=== PATIENT | male | born 1950 | race Caucasian/White ===

== ENCOUNTER 2022-09-06 11:34 | Day surgery (SDC) | payer MEDICARE, OTHER ==
[~2022-09-06 11:34] MED LIST: Lactated Ringers 1,000 ML IV SCH; Midazolam 1 MG/ML 2 ML SDV ONE; Propofol 200 MG/20 ML SDV ONE; Sodium Chloride 0.9% 10 ML Syringe FLUSH PRN
[2022-09-06 16:40] VITALS: BP 136/88; PULSE 88
== END 2022-09-06 14:40 | disposition home or self-care (01) ==
LOC: LL.SDS 11:34
PROVIDERS: ATTEND Surgery
DX: D12.5 Benign neoplasm of sigmoid colon (principal); K57.30 Diverticulosis of large intestine without perforation or abscess without bleeding; F41.8 Other specified anxiety disorders; I13.0 Hypertensive heart and chronic kidney disease with heart failure and stage 1 through stage 4 chronic kidney disease, or unspecified chronic kidney disease; N18.4 Chronic kidney disease, stage 4 (severe); I50.9 Heart failure, unspecified; I48.19 Other persistent atrial fibrillation; D50.0 Iron deficiency anemia secondary to blood loss (chronic); E03.9 Hypothyroidism, unspecified; E78.5 Hyperlipidemia, unspecified; I48.21 Permanent atrial fibrillation; G47.33 Obstructive sleep apnea (adult) (pediatric); Z90.49 Acquired absence of other specified parts of digestive tract; Z98.0 Intestinal bypass and anastomosis status; Z79.890 Hormone replacement therapy; Z79.899 Other long term (current) drug therapy; Z87.891 Personal history of nicotine dependence; Z79.01 Long term (current) use of anticoagulants
CPT/HCPCS: 00812; J2250; J2704; J7120

== ENCOUNTER 2022-10-25 21:25 | Emergency (ER) | payer MEDICARE, OTHER ==
[2022-10-25] MEDS ORDERED: Meclizine 25 MG Tab PO ONE (21:27)
[2022-10-25 21:41] VITALS: BP 151/98; PULSE 73
== END 2022-10-25 21:50 | disposition home or self-care (01) ==
LOC: LL.ED 21:25
DX: R42 Dizziness and giddiness (principal); I48.91 Unspecified atrial fibrillation; E78.00 Pure hypercholesterolemia, unspecified; I25.2 Old myocardial infarction; K21.9 Gastro-esophageal reflux disease without esophagitis; Z86.73 Personal history of transient ischemic attack (TIA), and cerebral infarction without residual deficits; Z79.01 Long term (current) use of anticoagulants; Z79.899 Other long term (current) drug therapy
CPT/HCPCS: 99284; A9270-GY

== ENCOUNTER 2023-01-24 09:20 | Day surgery (SDC) | payer MEDICARE, OTHER ==
[~2023-01-24 09:20] MED LIST changes: -Lactated Ringers 1,000 ML IV SCH; -Sodium Chloride 0.9% 10 ML Syringe FLUSH PRN
[2023-01-24] MEDS ORDERED: Sodium Chloride 0.9% 10 ML Syringe FLUSH PRN (09:30)
[2023-01-24] MEDS ORDERED: Lactated Ringers 1,000 ML IV SCH (09:30)
[2023-01-24] MEDS ORDERED: Propofol 200 MG/20 ML SDV IVPUSH ONE (11:10)
[2023-01-24 11:58] VITALS: BP 129/91; PULSE 80
== END 2023-01-24 12:38 | disposition home or self-care (01) ==
LOC: LL.SDS 09:20
PROVIDERS: ATTEND Surgery
DX: Z12.11 Encounter for screening for malignant neoplasm of colon (principal); K57.30 Diverticulosis of large intestine without perforation or abscess without bleeding; E87.6 Hypokalemia; I13.0 Hypertensive heart and chronic kidney disease with heart failure and stage 1 through stage 4 chronic kidney disease, or unspecified chronic kidney disease; N18.4 Chronic kidney disease, stage 4 (severe); I50.33 Acute on chronic diastolic (congestive) heart failure; F41.8 Other specified anxiety disorders; E78.5 Hyperlipidemia, unspecified; I48.21 Permanent atrial fibrillation; D68.59 Other primary thrombophilia; I77.819 Aortic ectasia, unspecified site; K21.9 Gastro-esophageal reflux disease without esophagitis; E03.9 Hypothyroidism, unspecified; Z86.010 Personal history of colon polyps; Z87.891 Personal history of nicotine dependence; Z98.0 Intestinal bypass and anastomosis status; Z86.73 Personal history of transient ischemic attack (TIA), and cerebral infarction without residual deficits; Z79.01 Long term (current) use of anticoagulants
CPT/HCPCS: 00812; J2250; J2704; J7120

== ENCOUNTER 2023-11-04 18:03 | Observation (INO) | payer MEDICARE, OTHER ==
[2023-11-04 18:23] LABS: BASOPHILS ABSOLUTE AUTO 0.05 K/uL (0.00-0.20); BASOPHILS PERCENT AUTO 0.5 % (0.0-2.0); EOSINOPHILS ABSOLUTE AUTO 0.19 K/uL (0.00-0.50); EOSINOPHILS PERCENT AUTO 2.1 % (0.0-5.0); HEMATOCRIT 48.9 % (39.0-49.0); HEMOGLOBIN 15.7 g/dL (13.1-16.8); LYMPHOCYTES ABSOLUTE AUTO 1.49 K/uL (0.50-3.50); LYMPHOCYTES PERCENT AUTO 16.2 % (10.0-50.0); MEAN CORPUSCULAR HGB CONC 32.1 g/dL (31.7-36.0); MEAN CORPUSCULAR VOLUME 93.5 fL (84.0-98.0); MONOCYTES ABSOLUTE AUTO 0.91 K/uL (0.00-1.00); MONOCYTES PERCENT AUTO 9.9 % (2.0-14.0); NEUTROPHILS ABSOLUTE AUTO 6.58 K/uL (1.40-7.00); NEUTROPHILS PERCENT AUTO 71.3 % (45.0-80.0); PLATELET COUNT,PLT 304 K/uL (150-350); RED BLOOD CELL COUNT 5.23 M/uL (4.33-5.41); RED CELL DISTRIBUTION WIDTH 14.1 % (11.2-14.1); WHITE BLOOD CELL COUNT,WBC 9.2 K/uL (4.0-10.2)
[2023-11-04 18:43] LABS: ALANINE AMINOTRANSFERASE,ALT 17 U/L (12-78); ALBUMIN 2.8 g/dL (3.4-5.0); ALKALINE PHOSPHATASE 150 IU/L (46-116); ASPARTATE AMNIOTRANSFERASE,AST 14 U/L (15-37); BILIRUBIN TOTAL 0.8 mg/dL (0.2-1.0); BLOOD UREA NITROGEN,BUN 30 mg/dL (7-18); CALCIUM 8.3 mg/dL (8.5-10.1); CARBON DIOXIDE,CO2 28.2 mmol/L (21.0-32.0); CHLORIDE,CL 108 mmol/L (98-107); CREATININE 2.75 mg/dL (0.51-1.17); GLUCOSE RANDOM 87 mg/dL (70-99); POTASSIUM,K 4.4 mmol/L (3.5-5.1); SODIUM,NA 141 mmol/L (136-145)
[2023-11-04 18:44] LABS: ANION GAP 9.2 meq/L (7-15); ESTIMATED GFR 23 mL/min (>=60)
[2023-11-04 18:50] LABS: INR 2.9 (0.9-1.1); PROTHROMBIN TIME 27.5 SEC (9.0-11.1)
[2023-11-04 19:34] LABS: PTT,PARTIAL THROMBOPLSTIN TIME 38.1 SEC (23.6-29.8)
[2023-11-05 06:24] VITALS: BP 128/83; PULSE 81
[2023-11-05 07:28] LABS: BASOPHILS ABSOLUTE AUTO 0.05 K/uL (0.00-0.20); BASOPHILS PERCENT AUTO 0.6 % (0.0-2.0); EOSINOPHILS ABSOLUTE AUTO 0.23 K/uL (0.00-0.50); EOSINOPHILS PERCENT AUTO 2.7 % (0.0-5.0); HEMOGLOBIN 14.4 g/dL (13.1-16.8); LYMPHOCYTES ABSOLUTE AUTO 1.42 K/uL (0.50-3.50); LYMPHOCYTES PERCENT AUTO 16.4 % (10.0-50.0); MEAN CORPUSCULAR HEMOGLOBIN 29.9 pg (28.2-33.3); MEAN CORPUSCULAR VOLUME 93.6 fL (84.0-98.0); MONOCYTES ABSOLUTE AUTO 0.99 K/uL (0.00-1.00); MONOCYTES PERCENT AUTO 11.5 % (2.0-14.0); NEUTROPHILS ABSOLUTE AUTO 5.95 K/uL (1.40-7.00); NEUTROPHILS PERCENT AUTO 68.8 % (45.0-80.0); PLATELET COUNT,PLT 283 K/uL (150-350); RED BLOOD CELL COUNT 4.81 M/uL (4.33-5.41); WHITE BLOOD CELL COUNT,WBC 8.6 K/uL (4.0-10.2)
[2023-11-05] MEDS: Furosemide 20 MG Tab PO ONE (07:36)
[2023-11-05] MEDS: Finasteride 5 MG Tab PO ONE (07:36)
[2023-11-05] MEDS: Potassium Chloride 20 MEQ Tab.ER PO ONE (07:36)
[2023-11-05] MEDS: Levothyroxine 25 MCG Tab PO ONE (07:36)
[2023-11-05] MEDS: Magnesium Oxide 400 MG Tab PO ONE (07:36)
[2023-11-05] MEDS: Vitamin B Complex Tab PO ONE (07:36)
[2023-11-05] MEDS: Meclizine 25 MG Tab PO ONE (07:36)
[2023-11-05] MEDS: Omeprazole 20 MG Cap.CR PO ONE (07:36)
[2023-11-05] MEDS: Sennosides 8.6 MG Tab PO ONE (07:36)
[2023-11-05] MEDS: amLODIPine 5 MG Tab PO ONE (07:37)
[2023-11-05] MEDS: Sodium Chloride 0.9% 10 ML Syringe FLUSH PRN (07:44)
[2023-11-05] MEDS ORDERED: Cholecalciferol (Vitamin D3) 5,000 UNIT Tab PO SCH (08:00)
[2023-11-05 08:10] LABS: PROTHROMBIN TIME 29.1 SEC (9.0-11.1)
[2023-11-05 08:21] LABS: ALANINE AMINOTRANSFERASE,ALT 18 U/L (12-78); ALBUMIN 2.6 g/dL (3.4-5.0); ALKALINE PHOSPHATASE 127 IU/L (46-116); ANION GAP 10.9 meq/L (7-15); ASPARTATE AMNIOTRANSFERASE,AST 16 U/L (15-37); BILIRUBIN TOTAL 0.9 mg/dL (0.2-1.0); BLOOD UREA NITROGEN,BUN 30 mg/dL (7-18); CALCIUM 8.3 mg/dL (8.5-10.1); CARBON DIOXIDE,CO2 25.5 mmol/L (21.0-32.0); CHLORIDE,CL 110 mmol/L (98-107); CREATINE KINASE,CK 31 U/L (26-308); ESTIMATED GFR 25 mL/min (>=60); GLUCOSE RANDOM 95 mg/dL (70-99); POTASSIUM,K 4.4 mmol/L (3.5-5.1); PROTEIN TOTAL,TP 5.6 g/dL (6.4-8.2); SODIUM,NA 142 mmol/L (136-145)
== END 2023-11-05 09:50 | disposition home or self-care (01) ==
LOC: LL.ED 18:03 → LL.MS 20:32 → UNDOADMOB 20:32
PROVIDERS: ADMIT Physician Assistant; ATTEND Physician Assistant
DX: S80.12XA Contusion of left lower leg, initial encounter (principal); I11.0 Hypertensive heart disease with heart failure; I50.9 Heart failure, unspecified; I48.91 Unspecified atrial fibrillation; E03.9 Hypothyroidism, unspecified; E78.00 Pure hypercholesterolemia, unspecified; K21.9 Gastro-esophageal reflux disease without esophagitis; Z79.01 Long term (current) use of anticoagulants; Z79.890 Hormone replacement therapy; Z79.899 Other long term (current) drug therapy; W10.8XXA Fall (on) (from) other stairs and steps, initial encounter
CPT/HCPCS: 36415; 70450; 71046; 72125; 72170; 73700-LT; 80053; 82550; 83605; 85025; 85610; 85730; 99285; A9270-GY; G0378; J3490

== ENCOUNTER 2024-04-28 17:08 | Inpatient (IN) | payer MEDICARE, OTHER ==
[2024-04-28] MEDS: Phytonadione 5 MG Tab PO ONE (17:39)
[2024-04-28] MEDS ORDERED: Acetaminophen 325 MG Tab PO PRN (21:52)
[2024-04-28] MEDS ORDERED: Ondansetron 4 MG Tab.DIS PO PRN (21:52)
[2024-04-29 07:09] LABS: APPEARANCE,URINE SLIGHTLY CLOUDY; BILIRUBIN,URINE NEGATIVE (NEGATIVE); COLOR,URINE DARK YELLOW; GLUCOSE,URINE NEGATIVE (NEGATIVE); KETONES,URINE NEGATIVE (NEGATIVE); LEUKOCYTE ESTERASE,URINE MODERATE (NEGATIVE); NITRITE,URINE NEGATIVE (NEGATIVE); OCCULT BLOOD,URINE SMALL (NEGATIVE); PH,URINE 5.5 (5.0-9.0); PROTEIN,URINE 100 mg/dL (NEGATIVE); UROBILINOGEN,URINE 0.2 E.U./dL (0.2-1.0)
[2024-04-29] MEDS: Ferrous Sulfate 325 MG Tab PO SCH (07:17)
[2024-04-29] MEDS: levETIRAcetam 500 MG Tab PO SCH (07:18)
[2024-04-29] MEDS: amLODIPine 5 MG Tab PO SCH (07:19)
[2024-04-29] MEDS: Furosemide 20 MG Tab PO SCH (07:21)
[2024-04-29] MEDS: Ezetimibe 10 MG Tab PO SCH (07:22)
[2024-04-29] MEDS: Cholecalciferol (Vitamin D3) 25 MCG Tab PO SCH (07:22)
[2024-04-29] MEDS: Magnesium Oxide 400 MG Tab PO SCH (07:23)
[2024-04-29] MEDS: Meclizine 25 MG Tab PO SCH (07:23)
[2024-04-29] MEDS: Sennosides 8.6 MG Tab PO SCH (07:24)
[2024-04-29] MEDS: Levothyroxine 25 MCG Tab PO SCH (07:24)
[2024-04-29] MEDS: Omeprazole 20 MG Cap.CR PO SCH (07:25)
[2024-04-29] MEDS: Finasteride 5 MG Tab PO SCH (07:25)
[2024-04-29 07:34] LABS: BACTERIA,URINE FEW /HPF (NONE TO FEW)
[2024-04-29 07:35] LABS: WBC,URINE 30-40 /HPF
[2024-04-29 07:41] LABS: BASOPHILS ABSOLUTE AUTO 0.08 K/uL (0.00-0.20); BASOPHILS PERCENT AUTO 0.8 % (0.0-2.0); EOSINOPHILS PERCENT AUTO 2.1 % (0.0-5.0); HEMATOCRIT 42.8 % (39.0-49.0); HEMOGLOBIN 13.6 g/dL (13.1-16.8); IMMATURE GRAN ABSOLUTE AUTO 0.37 10^3/uL (0.00-0.50); IMMATURE GRAN PERCENT AUTO 3.9 % (0.0-5.0); LYMPHOCYTES ABSOLUTE AUTO 1.52 K/uL (0.50-3.50); LYMPHOCYTES PERCENT AUTO 15.9 % (10.0-50.0); MEAN CORPUSCULAR HEMOGLOBIN 29.8 pg (28.2-33.3); MEAN CORPUSCULAR HGB CONC 31.8 g/dL (31.7-36.0); MEAN CORPUSCULAR VOLUME 93.9 fL (84.0-98.0); MONOCYTES ABSOLUTE AUTO 0.95 K/uL (0.00-1.00); MONOCYTES PERCENT AUTO 9.9 % (2.0-14.0); NEUTROPHILS ABSOLUTE AUTO 6.45 K/uL (1.40-7.00); NEUTROPHILS PERCENT AUTO 67.4 % (45.0-80.0); PLATELET COUNT,PLT 510 K/uL (150-350); RED BLOOD CELL COUNT 4.56 M/uL (4.33-5.41); RED CELL DISTRIBUTION WIDTH 14.9 % (11.2-14.1); WHITE BLOOD CELL COUNT,WBC 9.6 K/uL (4.0-10.2)
[2024-04-29 07:56] LABS: ALBUMIN 1.8 g/dL (3.4-5.0); BILIRUBIN TOTAL 0.8 mg/dL (0.2-1.0); CALCIUM 8.9 mg/dL (8.5-10.1); CARBON DIOXIDE,CO2 25.9 mmol/L (21.0-32.0); CREATININE 2.97 mg/dL (0.51-1.17); EST CRCL DRUG DOSING (CG) 24.66 mL/min; POTASSIUM,K 3.9 mmol/L (3.5-5.1); PROTEIN TOTAL,TP 5.6 g/dL (6.4-8.2)
[2024-04-29] MEDS ORDERED: FOLIC ACID PO SCH (08:00)
[2024-04-29] MEDS ORDERED: VITAMIN B COMP W C PO SCH (08:00)
[2024-04-29] MEDS ORDERED: DIPYRIDAMOLE 25 MG PO SCH (08:00)
[2024-04-29] MEDS ORDERED: [UNRECOGNIZED DRUG - OTHER] PO SCH (08:00)
[2024-04-29 08:49] LABS: INR > 13.0 (0.9-1.1); PROTHROMBIN TIME > 170.9 SEC (9.0-11.1); PTT,PARTIAL THROMBOPLSTIN TIME 89.3 SEC (23.6-29.8)
[2024-04-29] MEDS: Phytonadione 5 MG Tab PO ONE (11:38)
[2024-04-29] MEDS: cefTRIAXone 1 GM Vial IM ONE (16:52)
[2024-04-29 17:18] LABS: PROTHROMBIN TIME 82.3 SEC (9.0-11.1)
[2024-04-29] MEDS: atorvaSTATin 40 MG Tab PO SCH (19:27)
[2024-04-29] MEDS: Sertraline 25 MG Tab PO SCH (19:28)
[2024-04-29] MEDS: traZODone 50 MG Tab PO SCH (19:28)
[2024-04-29] MEDS ORDERED: Non-Formulary Medication 1 Each (Famotidine [Pepcid] 40 MG Tablet) PO SCH (20:00)
[2024-04-30 07:43] LABS: BASOPHILS ABSOLUTE AUTO 0.04 K/uL (0.00-0.20); BASOPHILS PERCENT AUTO 0.4 % (0.0-2.0); EOSINOPHILS ABSOLUTE AUTO 0.19 K/uL (0.00-0.50); EOSINOPHILS PERCENT AUTO 1.9 % (0.0-5.0); HEMATOCRIT 41.7 % (39.0-49.0); HEMOGLOBIN 13.1 g/dL (13.1-16.8); LYMPHOCYTES ABSOLUTE AUTO 1.47 K/uL (0.50-3.50); LYMPHOCYTES PERCENT AUTO 14.9 % (10.0-50.0); MEAN CORPUSCULAR HEMOGLOBIN 29.5 pg (28.2-33.3); MEAN CORPUSCULAR HGB CONC 31.4 g/dL (31.7-36.0); MEAN CORPUSCULAR VOLUME 93.9 fL (84.0-98.0); MONOCYTES ABSOLUTE AUTO 0.92 K/uL (0.00-1.00); MONOCYTES PERCENT AUTO 9.3 % (2.0-14.0); NEUTROPHILS ABSOLUTE AUTO 6.95 K/uL (1.40-7.00); NEUTROPHILS PERCENT AUTO 70.5 % (45.0-80.0); PLATELET COUNT,PLT 485 K/uL (150-350); RED BLOOD CELL COUNT 4.44 M/uL (4.33-5.41); RED CELL DISTRIBUTION WIDTH 14.8 % (11.2-14.1); WHITE BLOOD CELL COUNT,WBC 9.9 K/uL (4.0-10.2)
[2024-04-30] MEDS: Potassium Chloride 20 MEQ Tab.ER PO SCH (07:50)
[2024-04-30 08:12] LABS: ALBUMIN 1.8 g/dL (3.4-5.0); BILIRUBIN TOTAL 0.6 mg/dL (0.2-1.0); CALCIUM 8.7 mg/dL (8.5-10.1); CARBON DIOXIDE,CO2 25.5 mmol/L (21.0-32.0); CREATININE 2.93 mg/dL (0.51-1.17); POTASSIUM,K 3.8 mmol/L (3.5-5.1); PROTEIN TOTAL,TP 5.4 g/dL (6.4-8.2)
[2024-04-30 08:25] LABS: ANION GAP 12.3 meq/L (7-15)
[2024-04-30 08:33] LABS: INR 3.8 (0.9-1.1); PROTHROMBIN TIME 35.7 SEC (9.0-11.1)
[2024-04-30] MEDS: cefTRIAXone 1 GM Vial IM ONE (11:32)
[2024-04-30] MEDS: Lidocaine 1% 5 ML VIAL INJECT ONE (11:32)
[2024-04-30 12:39] LABS: INR 1.8 (0.9-1.1)
[2024-04-30 16:29] LABS: INR 3.3 (0.9-1.1); PROTHROMBIN TIME 31.5 SEC (9.0-11.1)
[2024-04-30] MEDS: Warfarin 2.5 MG Tab PO ONE (17:35)
[2024-05-01 08:05] LABS: INR 3.3
[2024-05-01] MEDS: Sulfamethoxazole/Trimethoprim 800-160 MG Tab PO SCH (09:22)
[2024-05-01] MEDS ORDERED: cefTRIAXone 1 GM, Lidocaine 1% 2.1 ML IM ONE (12:00)
[2024-05-01 13:28] VITALS: BP 103/75; PULSE 85
[2024-05-01] MEDS: Magnesium Oxide 400 MG Tab PO SCH (13:38)
[2024-05-01] MEDS ORDERED: Warfarin 2 MG Tab PO ONE (18:00)
== END 2024-05-01 16:25 | disposition home or self-care (01) | DRG 690 ==
LOC: LL.ED 17:08 → OBSVTOIN 18:20 → LL.MS 18:20 → LL.ED 18:20
PROVIDERS: ADMIT Physician Assistant; ATTEND Physician Assistant
DX: N39.0 Urinary tract infection, site not specified (principal); N18.4 Chronic kidney disease, stage 4 (severe); F03.B4 Unspecified dementia, moderate, with anxiety; E66.9 Obesity, unspecified; I48.21 Permanent atrial fibrillation; F03.B3 Unspecified dementia, moderate, with mood disturbance; R79.1 Abnormal coagulation profile; Z79.899 Other long term (current) drug therapy; Z68.35 Body mass index [BMI] 35.0-35.9, adult; I12.9 Hypertensive chronic kidney disease with stage 1 through stage 4 chronic kidney disease, or unspecified chronic kidney disease; K59.09 Other constipation; I25.10 Atherosclerotic heart disease of native coronary artery without angina pectoris; E03.9 Hypothyroidism, unspecified; R42 Dizziness and giddiness; K21.9 Gastro-esophageal reflux disease without esophagitis; E78.00 Pure hypercholesterolemia, unspecified; Z86.73 Personal history of transient ischemic attack (TIA), and cerebral infarction without residual deficits; Z79.890 Hormone replacement therapy; Z79.01 Long term (current) use of anticoagulants; Z93.3 Colostomy status; Z98.42 Cataract extraction status, left eye; Z98.41 Cataract extraction status, right eye; Z95.2 Presence of prosthetic heart valve
CPT/HCPCS: 85610; 99285; A9270; 36415; 36416; 80053; 81001; 85025; 85730; 87086; 87088; 97161-GP; 99223; 99232; 99233; 99239; J0696; J3490